=== PATIENT | male | born 1955 | race African-American/Black ===

== ENCOUNTER 2018-08-14 16:50 | Inpatient (IN) ==
--- NOTE | 2018-08-14 17:24 | XR ---
EXAM DATE: 08/14/2018 5:21 PM EST AGE/SEX: 62 years / Male INDICATIONS: Chest pain CLINICAL DATA: This is the patient's initial encounter. Patient reports that signs and symptoms have been present for 1 day and indicates a pain score of 0/10. MEDICAL/SURGICAL HISTORY: None. None. COMPARISON: No prior exams available for comparison. FINDINGS: There is dense airspace consolidation right lower lobe. Heart and mediastinum are unremarkable for technique. CONCLUSION: Right lower lobe pneumonia. Electronically signed by: Ivan Stockton MD Board Certified Radiologist 08/14/2018 5:23 PM EST
[2018-08-14] MEDS ORDERED: Azithromycin Inj 500 MG in Sodium Chlor 0.9% Inj 250 ML IV.SIG ONE (17:39)
[2018-08-14 17:42] LABS: Baso # (Auto) 0.1 th/mm3 (0.0-0.2); Baso % (Auto) 0.6 % (0.0-2.0); Eos # (Auto) 0.1 th/mm3 (0.0-0.4); Eos % (Auto) 0.5 % (0.0-4.0); Hematocrit 27.5 % (39.0-51.0); Hemoglobin 8.7 gm/dL (13.0-17.0); Lymph # (Auto) 1.7 th/mm3 (1.0-4.8); Lymph % (Auto) 10.9 % (9.0-44.0); Mean Corpuscular HGB Conc 31.7 % (32.0-36.0); Mean Corpuscular Hemoglobin 21.7 pg (27.0-34.0); Mean Corpuscular Volume 68.5 fL (80.0-100.0); Mean Platelet Volume 7.1 fL (7.0-11.0); Mono # (Auto) 1.2 th/mm3 (0.0-0.9); Mono % (Auto) 7.8 % (0.0-8.0); Neut # (Auto) 12.4 th/mm3 (1.8-7.7); Neut % (Auto) 80.2 % (16.0-70.0); Platelet Count 762 th/mm3 (150-450); Red Blood Count 4.01 mil/mm3 (4.50-5.90); Red Cell Distribution Width 17.4 % (11.6-17.2); White Blood Count 15.4 th/mm3 (4.0-11.0)
[2018-08-14] MEDS ORDERED: Sod Chloride 0.9% Inj 1,000 ML IV.SIG SCH (18:00)
[2018-08-14 18:01] LABS: Alanine Aminotransferase 64 U/L (12-78); Albumin 2.1 g/dL (3.4-5.0); Anion Gap 6 meq/L (5-15); Aspartate Aminotransferase 37 U/L (15-37); Blood Urea Nitrogen 7 mg/dL (7-18); Calcium 8.7 mg/dL (8.5-10.1); Carbon Dioxide 30.1 meq/L (21.0-32.0); Chloride 101 meq/L (98-107); Glomerular Filtration Rate Greater Than 89 mL/min (>89); Glucose,Random 97 mg/dL (74-106); Potassium 3.9 meq/L (3.5-5.1); Sodium 137 meq/L (136-145)
[2018-08-14 18:05] LABS: Alkaline Phosphatase 79 U/L (45-117); Total Protein 8.7 g/dL (6.4-8.2)
--- NOTE | 2018-08-14 18:20 | ED ---
HPI General Chief Complaint: Shortness of Breath/Dyspnea Stated Complaint: Medical/SOB Time Seen by Provider: 08/14/18 17:04 Source: patient and family Mode of arrival: ambulatory Limitations: no limitations History of Present Illness 62-year-old male who presents to the ED for evaluation of shortness of breath. Per patient is been having cough and congestion for about 3 weeks now and apparently had an x-ray at a different facility today that show possible pneumonia. From what it sounds like he was in urgent care had to do an outpatient x-ray. Patient comes here with a report of the x-ray that did show right-sided lower lobe pneumonia. He was given a given prescriptions but apparently he communicated with 1 of his family members who works in the healthcare field recommended that the patient come to the ER to be reevaluated. Patient states that he has lost his appetite. He does have a history of smoking and smokes daily but has quit about 3 weeks ago since the symptoms started. Has been taking [id number]-kzihjit remedies with some relief. Per patient overall he does not feel well. He denies any shortness of breath with exertion but states that he has cough and congestion to make him short of breath. He overall just feels weak. He feels like nothing really makes it better. He denies any chest pain. No recent travel. No sick contacts. Did not get the flu shot. Related Data Home Medications Medication Instructions Recorded Confirmed No Known Home Medications 08/14/18 08/14/18 Allergies Allergy/AdvReac Type Severity Reaction Status Date / Time No Known Allergies Uncoded 09/27/10 13:16 Review of Systems ROS: all other systems reviewed are negative [facility] Medical History Medical History Hypertension (Acute) Surgical History Surgical History No history of previous surgery (Acute) Social History Social History Substance History: No History of Abuse Smoking Status: Former smoker Tobacco Type: Cigarettes How Often Do You Have a Drink Containing Alcohol: 2 to 4 times a month Recent Travel in [place] within the Last 8 Weeks: No Recent Out of Country Travel within the Last 8 Weeks: No Immunization History Tetanus Immunization: Unsure Exam Narrative Exam Narrative: GENERAL: Well appearing. SKIN: Focused skin assessment warm/dry. HEAD: Atraumatic. Normocephalic. EYES: Pupils equal and round. No scleral icterus. No injection or drainage. ENT: No nasal bleeding or discharge. Mucous membranes pink and moist. Tongue is midline. No Uvula deviation. TMs are clear with no sign of infection or perforation. NECK: Trachea midline. No JVD. CARDIOVASCULAR: Regular rate and rhythm. No murmur appreciated. RESPIRATORY: No accessory muscle use. Clear to auscultation. Breath sounds equal bilaterally. GASTROINTESTINAL: Abdomen soft, non-tender, nondistended. Hepatic and splenic margins not palpable. MUSCULOSKELETAL: No obvious deformities. No clubbing. No cyanosis. No edema. Full range of motion of the upper and lower extremities bilaterally. 2+ pulses bilaterally. NEUROLOGICAL: Awake and alert. No obvious cranial nerve deficits. Motor grossly within normal limits. Normal speech. PSYCHIATRIC: Appropriate mood and affect; insight and judgment normal. Course Initial Documented Vital Signs Temperature 99.8 F H 08/14/18 16:53 Pulse Rate 110 H 08/14/18 16:53 Respiratory Rate 20 08/14/18 16:53 Blood Pressure 113/66 08/14/18 16:53 Pulse Oximetry 96 08/14/18 16:53 Last Documented Vital Signs Temperature 99.8 F H 08/14/18 16:53 Pulse Rate 105 H 08/14/18 16:56 Respiratory Rate 20 08/14/18 16:56 Blood Pressure 113/66 08/14/18 16:53 Pulse Oximetry 100 08/14/18 16:56 Medical Decision Making [facility] Narrative Medical decision making narrative: 62-year-old male who presents to the ED for evaluation of possible pneumonia. Patient was properly examined and was found to have signs and symptoms consistent with appears to be infectious. Labs and imaging were ordered. Patient is clinically septic having a fever as well as tachycardia. Labs and imaging did show were consistent with right-sided lower lobe pneumonia with leukocytosis. My attending evaluated the patient herself and recommends admission for further evaluation and treatment. Patient will start ceftriaxone and azithromycin IV as well as given fluids. Patient understands reasons to be admitted. Case discussed with Dr. Crockett who agrees admission to his service. Medical Screen Exam Complete: Yes Emergency Medical Condition: Yes Differential Diagnosis Differential Diagnosis: Pneumonia versus sepsis versus shortness of breath versus [facility] Medical Records Medical records reviewed: Yes I reviewed the patient's medical records. Lab Data Lab results reviewed: Yes I reviewed the patient's lab results. Result diagrams: 08/14/18 17:20 08/14/18 17:20 Lab Results 08/14/18 08/14/18 08/14/18 Range/Units 17:20 17:20 17:20 WBC 15.4 H (4.0-11.0) th/mm3 RBC 4.01 L (4.50-5.90) mil/mm3 Hgb 8.7 L (13.0-17.0) gm/dL Hct 27.5 L (39.0-51.0) % MCV 68.5 L (80.0-100.0) fL MCH 21.7 L (27.0-34.0) pg MCHC 31.7 L (32.0-36.0) % RDW 17.4 H (11.6-17.2) % Plt Count 762 H (150-450) th/mm3 MPV 7.1 (7.0-11.0) fL Neut % (Auto) 80.2 H (16.0-70.0) % Lymph % (Auto) 10.9 (9.0-44.0) % [place] % (Auto) 7.8 (0.0-8.0) % Eos % (Auto) 0.5 (0.0-4.0) % Baso % (Auto) 0.6 (0.0-2.0) % Neut # (Auto) 12.4 H (1.8-7.7) th/mm3 Lymph # (Auto) 1.7 (1.0-4.8) th/mm3 [place] # (Auto) 1.2 H (0.0-0.9) th/mm3 Eos # (Auto) 0.1 (0.0-0.4) th/mm3 Baso # (Auto) 0.1 (0.0-0.2) th/mm3 WBC Differential . Differential Comment Auto diff final Sodium 137 (136-145) meq/L Potassium 3.9 (3.5-5.1) meq/L Chloride 101 (98-107) meq/L Carbon Dioxide 30.1 (21.0-32.0) meq/L Anion Gap 6 (5-15) meq/L BUN 7 (7-18) mg/dL Creatinine 0.84 (0.60-1.30) mg/dL Estimated GFR Greater than 89 (>89) mL/min Random Glucose 97 (74-106) mg/dL Lactic Acid 0.7 (0.4-2.0) mmol/L Calcium 8.7 (8.5-10.1) mg/dL Total Bilirubin 0.2 (0.2-1.0) mg/dL AST 37 (15-37) U/L ALT 64 (12-78) U/L Alkaline Phosphatase 79 (45-117) U/L Troponin I Less than 0.02 L (0.02-0.05) ng/mL Total Protein 8.7 H (6.4-8.2) g/dL Albumin 2.1 L (3.4-5.0) g/dL Imaging Data Attestation: I personally reviewed and interpreted this imaging study as follows : Radiologist's impression: Chest X-Ray 08/14/18 17:10 CONCLUSION: Right lower lobe pneumonia. ECG Data Attestation: I personally reviewed and interpreted this ECG as follows: Interpretation: EKG shows sinus tachycardia but no sign of acute ischemia and arrhythmia otherwise read by me and attending. Ventricular rate of 110 bpm, ND interval of [address] elevations noted. Discharge Plan Discharge Order Discharge Orders: ED Use Only Admit Order (Routine); Ordered 08/14/18 Ordered By: Darrius Presley Physicians Team ED Provider: Dori De La Torre ED Midlevel Provider: Darrius Presley Primary Care Provider: Primary Care AnnikaiTiesha Rxs /Orders / Referrals /Forms Prescriptions: No Action No Known Home Medications RF: 0 Discharge Interventions Interventions: Vital Signs Last Done: 08/14/18 16:56 Status ED Status: Admitted Observation Patient
[2018-08-14] MEDS ORDERED: Bisacodyl 10 MG Supp RECTAL PRN (18:56)
--- NOTE | 2018-08-14 18:59 | P.HPIM ---
History of Present Illness Primary Care Physician: No Primary Care Physician History of Present Illness: This is a 62-year-old male with a PMH of HTN and Tobacco Abuse who presented to the ER with complaints of SOB in addition to outpatient X-ray showing RLL pneumonia. Pt states symptoms started approx 3wks ago, has not been on antibiotics. Reports SOB w/ exertion, non-productive cough. No fever or chills. Went to Urgent Care today and had X-ray showing PNA , was given antibiotics, however did not start them yet, came to ER instead. On arrival, BP 113/66, HR 110, O2 sat 96% on RA, Temp 99.8. WBC 15.4. Hemoglobin 8.7, no previous labs for comparison. Chemistry unremarkable. CXR with right lower lobe pneumonia. S/p Rocephin/Zithro in ER. Diagnosis (1) Sepsis: (2) PNA (pneumonia): (3) Tobacco abuse: (4) Anemia: Review of Systems PAST FAMILY HISTORY: Reviewed. No h/o DM or CAD Review of Systems: all other systems reviewed are negative [facility] Medical History Medical History Hypertension (Acute) Surgical History Surgical History No history of previous surgery (Acute) Social History Social History Substance History: No History of Abuse Smoking Status: Former smoker Tobacco Type: Cigarettes How Often Do You Have a Drink Containing Alcohol: 2 to 4 times a month Recent Travel in [facility] within the Last 8 Weeks: No Recent Out of Country Travel within the Last 8 Weeks: No Immunization History Tetanus Immunization: Unsure Medications and Allergies Allergies Allergy/AdvReac Type Severity Reaction Status Date / Time No Known Allergies Uncoded 09/27/10 13:16 Home Medications Medication Instructions Recorded Confirmed Type No Known Home Medications 08/14/18 08/14/18 History Physical Exam Vital signs: Last Vital Signs Temp 99.8 F H 08/14/18 16:53 Pulse 98 H 08/14/18 18:57 Resp 20 08/14/18 18:57 BP 130/82 08/14/18 18:57 Pulse Ox 98 08/14/18 18:57 Intake & Output 08/12/18 08/13/18 08/14/18 08/15/18 06:59 06:59 06:59 06:59 Intake Total 1100 / 1100 Balance 1100 / 1100 Weight 97.522 kg Narrative: PE: GENERAL: Pleasant middle-aged black male in no acute distress. Multiple family members at bedside. SKIN: Focused skin assessment warm and dry. HEENT: PERRLA, EOMI. No scleral icterus or conjunctival pallor. No lid lag or facial droop. CARDIOVASCULAR: Regular rate and rhythm. No obvious murmurs to auscultation. No chest tenderness to palpation. RESPIRATORY: No obvious rhonchi or wheezing. Clear to auscultation. Breath sounds equal bilaterally. GASTROINTESTINAL: Abdomen soft, non-tender, nondistended. BS normal. MUSCULOSKELETAL: Extremities without clubbing, cyanosis, or edema. No obvious deformities. NEUROLOGICAL: Awake, alert and oriented x4. No focal neurologic deficits. Moving both upper and lower extremities spontaneously. PSYCHIATRIC: Appropriate mood and affect. Insight and judgment normal. Results Labs CBC & Chem 7: 08/14/18 17:20 08/14/18 17:20 Imaging Impressions Chest X-Ray 08/14/18 17:10 CONCLUSION: Right lower lobe pneumonia. Caprini VTE Risk Assessment Caprini VTE Risk Assessment: No/Low Risk (score <= 1) Caprini Risk Assessment Model: Point Value = 1 Point Value = 2 Point Value = 3 Point Value = 5 Age 41-60 Minor surgery BMI > 25 kg/m2 Swollen legs Varicose veins or History of unexplained or recurrent spontaneous Oral contraceptives or hormone replacement Sepsis (< 1 month) Serious lung disease, including pneumonia (< 1 month) Abnormal pulmonary function Acute myocardial infarction Congestive heart failure (< 1 month) History of inflammatory bowel disease Medical patient at bed rest Age 61-74 Arthroscopic surgery Major open surgery (> 45 min) Laparoscopic surgery (> 45 min) Malignancy Confined to bed (> 72 hours) Immobilizing plaster cast Central venous access Age >= 75 History of VTE Family history of VTE Factor V Leiden Prothrombin [id number] Lupus anticoagulant Anticardiolipin antibodies Elevated serum homocysteine Heparin-induced thrombocytopenia Other congenital or acquired thrombophilia Stroke (< 1 month) Elective arthroplasty Hip, pelvis, or leg fracture Acute spinal cord injury (< 1 month) Prophylaxis Regimen: Total Risk Factor Score Risk Level Prophylaxis Regimen 0-1 Low Early ambulation 2 Moderate Order ONE of the following: *Sequential Compression Device (SCD) *Heparin 5000 units SQ BID 3-4 Higher Order ONE of the following medications: *Heparin 5000 units SQ TID *Enoxaparin/Lovenox 40 mg SQ daily (WT < 150 kg, CrCl > 30 mL/min) *Enoxaparin/Lovenox 30 mg SQ daily (WT < 150 kg, CrCl > 10-29 mL/min) *Enoxaparin/Lovenox 30 mg SQ BID (WT < 150 kg, CrCl > 30 mL/min) AND/OR *Sequential Compression Device (SCD) 5 or more Highest Order ONE of the following medications: *Heparin 5000 units SQ TID (Preferred with Epidurals) *Enoxaparin/Lovenox 40 mg SQ daily (WT < 150 kg, CrCl > 30 mL/min) *Enoxaparin/Lovenox 30 mg SQ daily (WT < 150 kg, CrCl > 10-29 mL/min) *Enoxaparin/Lovenox 30 mg SQ BID (WT < 150 kg, CrCl > 30 mL/min) AND *Sequential Compression Device (SCD) Assessment and Plan (1) Sepsis: Code(s): A41.9 - Sepsis, unspecified organism Status: Acute (2) PNA (pneumonia): Code(s): J18.9 - Pneumonia, unspecified organism Status: Acute (3) Tobacco abuse: Code(s): Z72.0 - Tobacco use Status: Acute (4) Anemia: Code(s): D64.9 - Anemia, unspecified Status: Acute Plan A/P: 1. Sepsis: Temp 99.8, HR 110, WBC 15, Source-PNA, s/p Blood Cultures, Rocephin /Zithro in ER, follow up cultures, continue IV Abx, IVF for hydration. 2. PNA: outpatient X-ray w/ RLL pneumonia, confirmed on our imaging, continue IV Abx as above, DuoNeb prn, monitor O2 3. Anemia: Hgb 8.5, no previous labs for comparison, will repeat labs in am, transfuse as needed. 4. Tobacco Abuse: Pt counselled, stopped smoking 3wks ago at onset of SOB, NicoDerm patch if needed. 5. DVT Prophylaxis: SCD/Teds 6. Social work for d/c planning as needed. 7. Case discussed w/ ER physician at length, labs/records/imaging reviewed by me.
[2018-08-14] MEDS: Sod Chloride 0.9% Inj 1,000 ML IV.CONT SCH (19:57)
[2018-08-14] MEDS: Senna/Docusate Sodium 8.6/50 MG Tablet PO SCH (20:07)
[2018-08-15] MEDS: Sod Chloride 0.9% Inj 1,000 ML IV.CONT SCH (06:23)
[2018-08-15 08:17] LABS: Baso # (Auto) 0.2 th/mm3 (0.0-0.2); Baso % (Auto) 1.6 % (0.0-2.0); Eos # (Auto) 0.1 th/mm3 (0.0-0.4); Eos % (Auto) 0.4 % (0.0-4.0); Hematocrit 25.6 % (39.0-51.0); Hemoglobin 7.8 gm/dL (13.0-17.0); Lymph # (Auto) 1.2 th/mm3 (1.0-4.8); Lymph % (Auto) 8.7 % (9.0-44.0); Mean Corpuscular Hemoglobin 21.1 pg (27.0-34.0); Mean Corpuscular Volume 69.3 fL (80.0-100.0); Mean Platelet Volume 7.4 fL (7.0-11.0); Mono # (Auto) 1.1 th/mm3 (0.0-0.9); Mono % (Auto) 7.9 % (0.0-8.0); Neut # (Auto) 11.2 th/mm3 (1.8-7.7); Neut % (Auto) 81.4 % (16.0-70.0); Platelet Count 698 th/mm3 (150-450); Red Cell Distribution Width 17.5 % (11.6-17.2); White Blood Count 13.8 th/mm3 (4.0-11.0)
[2018-08-15 08:21] LABS: Mean Corpuscular HGB Conc 30.4 % (32.0-36.0)
[2018-08-15 09:00] LABS: Albumin 1.8 g/dL (3.4-5.0); Anion Gap 9 meq/L (5-15); Aspartate Aminotransferase 46 U/L (15-37); Blood Urea Nitrogen 6 mg/dL (7-18); Calcium 8.4 mg/dL (8.5-10.1); Chloride 105 meq/L (98-107); Glomerular Filtration Rate Greater Than 89 mL/min (>89); Glucose,Random 94 mg/dL (74-106); Potassium 3.4 meq/L (3.5-5.1); Sodium 139 meq/L (136-145)
[2018-08-15 09:02] LABS: Alanine Aminotransferase 56 U/L (12-78)
[2018-08-15 09:05] LABS: Alkaline Phosphatase 66 U/L (45-117); Total Protein 7.5 g/dL (6.4-8.2)
--- NOTE | 2018-08-15 12:08 | P.PN ---
Subjective Interval history: Follow-up sepsis/pneumonia August 15, 2018-patient seen and examined, still spiking fevers and complains of shortness of breath. Physical Exam Vital signs: Vital Signs 08/14/18 16:53 08/14/18 16:56 08/14/18 18:57 Temperature 99.8 F H Pulse Rate 110 H 105 H 98 H Respiratory Rate 20 20 20 Blood Pressure 113/66 130/82 Pulse Oximetry 96 100 98 08/15/18 00:21 08/15/18 02:31 08/15/18 04:00 Temperature 100.1 F H 99.3 F Pulse Rate 102 H 95 H 104 H Respiratory Rate 12 18 14 Blood Pressure 115/68 122/67 Pulse Oximetry 92 L 94 L 08/15/18 07:48 Temperature 100.2 F H Pulse Rate 100 H Respiratory Rate 18 Blood Pressure 127/69 Pulse Oximetry 95 Intake & Output 08/14/18 08/15/18 08/15/18 18:59 06:59 18:59 Intake Total 1100 / 1100 1250 / 1250 Balance 1100 / 1100 1250 / 1250 Weight 97.522 kg 97.522 kg Intake: IV 1100 / 1100 1250 / 1250 NS Inj 1,000 ML @ 100 mls/hr IV 1000 / 1000 .CONT .Q10H ANDREA Rx#:[id number] Azithromycin Inj 500 MG In NS 250 / 250 Inj 250 ML @ 250 mls/hr IV.SIG ONCE ONE Rx#:[id number] NS Inj 1,000 ML @ 1000 mls/hr 1000 / 1000 IV.SIG BOLUS ANDREA Rx#:[id number] Rocephin Inj 1,000 MG In NS Inj 100 / 100 100 ML @ 200 mls/hr IV.SIG ONCE ONE Rx#:[id number] Other: Weight On Admission 97.522 kg Narrative: GENERAL: NAD SKIN: Warm and dry. HEAD: Atraumatic. Normocephalic. EYES: Pupils equal and round. No scleral icterus. No injection or drainage. ENT: No nasal bleeding or discharge. Mucous membranes pink and moist. NECK: Trachea midline. No JVD. CARDIOVASCULAR: Regular rate and rhythm. RESPIRATORY: No accessory muscle use. Clear to auscultation. Breath sounds decrease R>L. GASTROINTESTINAL: Abdomen soft, non-tender, nondistended. Hepatic and splenic margins not palpable. MUSCULOSKELETAL: Extremities without clubbing, cyanosis, or edema. No obvious deformities. NEUROLOGICAL: Awake and alert. No obvious cranial nerve deficits. Motor grossly within normal limits. Five out of 5 muscle strength in the arms and legs. Normal speech. PSYCHIATRIC: Appropriate mood and affect; insight and judgment normal. Results - Labs CBC & Chem 7: 08/15/18 06:20 08/15/18 06:20 Laboratory Results - last 24 hr 08/14/18 08/14/18 08/14/18 17:20 17:20 17:20 WBC 15.4 H RBC 4.01 L Hgb 8.7 L Hct 27.5 L MCV 68.5 L MCH 21.7 L MCHC 31.7 L RDW 17.4 H Plt Count 762 H MPV 7.1 Neut % (Auto) 80.2 H Lymph % (Auto) 10.9 [place] % (Auto) 7.8 Eos % (Auto) 0.5 Baso % (Auto) 0.6 Neut # (Auto) 12.4 H Lymph # (Auto) 1.7 [place] # (Auto) 1.2 H Eos # (Auto) 0.1 Baso # (Auto) 0.1 WBC Differential . Differential Comment Auto diff final Sodium 137 Potassium 3.9 Chloride 101 Carbon Dioxide 30.1 Anion Gap 6 BUN 7 Creatinine 0.84 Estimated GFR Greater than 89 Random Glucose 97 Lactic Acid 0.7 Calcium 8.7 Total Bilirubin 0.2 AST 37 ALT 64 Alkaline Phosphatase 79 Troponin I Less than 0.02 L Total Protein 8.7 H Albumin 2.1 L 08/15/18 08/15/18 06:20 06:20 WBC 13.8 H RBC 3.70 L Hgb 7.8 L Hct 25.6 L MCV 69.3 L MCH 21.1 L MCHC 30.4 L RDW 17.5 H Plt Count 698 H MPV 7.4 Neut % (Auto) 81.4 H Lymph % (Auto) 8.7 L [place] % (Auto) 7.9 Eos % (Auto) 0.4 Baso % (Auto) 1.6 Neut # (Auto) 11.2 H Lymph # (Auto) 1.2 [place] # (Auto) 1.1 H Eos # (Auto) 0.1 Baso # (Auto) 0.2 WBC Differential . Differential Comment Auto diff final Sodium 139 Potassium 3.4 L Chloride 105 Carbon Dioxide 25.0 Anion Gap 9 BUN 6 L Creatinine 0.67 Estimated GFR Greater than 89 Random Glucose 94 Lactic Acid Calcium 8.4 L Total Bilirubin 0.3 AST 46 H ALT 56 Alkaline Phosphatase 66 Troponin I Total Protein 7.5 D Albumin 1.8 L Microbiology 08/14/18 17:26 Blood - Peripheral Aerobic Blood Culture - Preliminary No growth in 1 day 08/14/18 17:26 Blood - Peripheral Anaerobic Blood Culture - Preliminary No growth in 1 day 08/14/18 17:20 Blood - Peripheral Aerobic Blood Culture - Preliminary No growth in 1 day 08/14/18 17:20 Blood - Peripheral Anaerobic Blood Culture - Preliminary No growth in 1 day 08/14/18 17:26 Nasal Wash Influenza Types A,B Antigen - Final Negative for FLU A and B antigen Infection due to influenza A or B cannot be ruled out since the antigen present in the sample may be below the detection limit of the test. - Imaging Impressions Chest X-Ray 08/14/18 17:10 CONCLUSION: Right lower lobe pneumonia. Assessment and Plan - Assessment (1) Sepsis Code(s): A41.9 - Sepsis, unspecified organism Status: Acute (2) PNA (pneumonia) Code(s): J18.9 - Pneumonia, unspecified organism Status: Acute (3) Tobacco abuse Code(s): Z72.0 - Tobacco use Status: Acute (4) Anemia Code(s): D64.9 - Anemia, unspecified Status: Acute - Plan 62-year-old man with 1. Sepsis Source-PNA, s/p Blood Cultures, Currently on Rocephin/Zithro in ER, follow up cultures 2. Community-acquired bacteria PNA: X-ray w/ RLL pneumonia continue IV Abx as above, DuoNeb prn, monitor O2 3. Normochromic normocytic anemia Check Hemoccult, iron study Most recent hemoglobin less than 7 4. Tobacco Abuse: Pt counselled, stopped smoking 3wks ago at onset of SOB, NicoDerm patch if needed. 5. DVT Prophylaxis: SCD/Teds Transfer to [facility] CBC and CMP in a.m.
[2018-08-15] MEDS: Azithromycin Inj 500 MG in Sodium Chlor 0.9% Inj 250 ML IV.SIG SCH (18:26)
[2018-08-15] MEDS: Senna/Docusate Sodium 8.6/50 MG Tablet PO SCH (20:40)
[2018-08-15] MEDS: Acetaminophen 325 MG Tablet PO PRN (21:00)
--- NOTE | 2018-08-15 21:17 | ECG ---
Date Performed: 08/14/2018 Time Performed: 17:09:57 PTAGE: 62 years EKG: SINUS TACHYCARDIA NONSPECIFIC T-WAVE ABNORMALITY ABNORMAL RHYTHM ECG INTERPRETATION BASED O N A DEFAULT AGE OF 41 YEARS NO PREVIOUS TRACING DOCTOR: Rodolfo Kenney Interpretating Date/Time 08/15/2018 21:15:02
[2018-08-16 04:55] LABS: Baso # (Auto) 0.1 th/mm3 (0.0-0.2); Baso % (Auto) 0.9 % (0.0-2.0); Eos # (Auto) 0.1 th/mm3 (0.0-0.4); Eos % (Auto) 0.8 % (0.0-4.0); Hematocrit 25.3 % (39.0-51.0); Hemoglobin 7.9 gm/dL (13.0-17.0); Lymph # (Auto) 1.3 th/mm3 (1.0-4.8); Lymph % (Auto) 9.8 % (9.0-44.0); Mean Corpuscular HGB Conc 31.3 % (32.0-36.0); Mean Corpuscular Hemoglobin 21.1 pg (27.0-34.0); Mean Corpuscular Volume 67.4 fL (80.0-100.0); Mean Platelet Volume 6.8 fL (7.0-11.0); Mono # (Auto) 1.3 th/mm3 (0.0-0.9); Mono % (Auto) 9.7 % (0.0-8.0); Neut # (Auto) 10.3 th/mm3 (1.8-7.7); Neut % (Auto) 78.8 % (16.0-70.0); Platelet Count 699 th/mm3 (150-450); Red Blood Count 3.76 mil/mm3 (4.50-5.90); Red Cell Distribution Width 17.4 % (11.6-17.2)
[2018-08-16 05:16] LABS: Albumin 1.6 g/dL (3.4-5.0); Anion Gap 5 meq/L (5-15); Aspartate Aminotransferase 62 U/L (15-37); Blood Urea Nitrogen 5 mg/dL (7-18); Calcium 8.4 mg/dL (8.5-10.1); Carbon Dioxide 28.5 meq/L (21.0-32.0); Chloride 106 meq/L (98-107); Glomerular Filtration Rate Greater Than 89 mL/min (>89); Glucose,Random 113 mg/dL (74-106); Potassium 3.8 meq/L (3.5-5.1); Sodium 139 meq/L (136-145)
[2018-08-16 05:17] LABS: Alanine Aminotransferase 70 U/L (12-78)
[2018-08-16 05:19] LABS: Alkaline Phosphatase 62 U/L (45-117); Total Protein 7.3 g/dL (6.4-8.2)
--- NOTE | 2018-08-16 11:26 | P.PN ---
Subjective Interval history: Follow-up sepsis/pneumonia August 15, 2018-patient seen and examined, still spiking fevers and complains of shortness of breath. August 16, 2018-patient seen and examined, currently afebrile times 24 hours. Reports improvement of shortness of breath and denies any chest pain. Physical Exam Vital signs: Vital Signs 08/15/18 12:15 08/15/18 16:23 08/15/18 17:28 Temperature 99.3 F 99.9 F H Pulse Rate 98 H 103 H 105 H Respiratory Rate 16 16 18 Blood Pressure 121/66 142/75 H Pulse Oximetry 97 97 08/15/18 19:51 08/16/18 00:00 08/16/18 04:00 Temperature 101.6 F H 98.7 F 98.5 F Pulse Rate 107 H 86 90 Respiratory Rate 22 20 18 Blood Pressure 125/77 120/62 123/67 Pulse Oximetry 96 98 100 08/16/18 08:10 Temperature 99.3 F Pulse Rate 95 H Respiratory Rate 14 Blood Pressure 125/62 Pulse Oximetry 100 Intake & Output 08/15/18 08/16/18 08/16/18 18:59 06:59 18:59 Intake Total 450 / 450 1090 / 1090 Balance 450 / 450 1090 / 1090 Weight 102.7 kg Intake: IV 850 / 850 NS Inj 1,000 ML @ 100 mls/hr IV 500 / 500 .CONT .Q10H ANDREA Rx#:[id number] Azithromycin Inj 500 MG In NS 250 / 250 Inj 250 ML @ 250 mls/hr IV.SIG Q24H ANDREA Rx#:[id number] Rocephin Inj 1,000 MG In NS Inj 100 / 100 100 ML @ 200 mls/hr IV.SIG Q24H ANDREA Rx#:[id number] Oral 450 / 450 240 / 240 Other: # Voids 4 1 Date of Last Bowel Movement 08/14/18 08/15/18 Narrative: GENERAL: NAD SKIN: Warm and dry. HEAD: Atraumatic. Normocephalic. EYES: Pupils equal and round. No scleral icterus. No injection or drainage. ENT: No nasal bleeding or discharge. Mucous membranes pink and moist. NECK: Trachea midline. No JVD. CARDIOVASCULAR: Regular rate and rhythm. RESPIRATORY: No accessory muscle use. Clear to auscultation. Breath sounds equal bilaterally GASTROINTESTINAL: Abdomen soft, non-tender, nondistended. Hepatic and splenic margins not palpable. MUSCULOSKELETAL: Extremities without clubbing, cyanosis, or edema. No obvious deformities. NEUROLOGICAL: Awake and alert. No obvious cranial nerve deficits. Motor grossly within normal limits. Five out of 5 muscle strength in the arms and legs. Normal speech. PSYCHIATRIC: Appropriate mood and affect; insight and judgment normal. Results - Labs CBC & Chem 7: 08/16/18 04:39 08/16/18 04:39 Laboratory Results - last 24 hr 08/15/18 08/16/18 08/16/18 06:20 04:39 04:39 WBC 13.0 H RBC 3.76 L Hgb 7.9 L Hct 25.3 L MCV 67.4 L MCH 21.1 L MCHC 31.3 L RDW 17.4 H Plt Count 699 H MPV 6.8 L Neut % (Auto) 78.8 H Lymph % (Auto) 9.8 [place] % (Auto) 9.7 H Eos % (Auto) 0.8 Baso % (Auto) 0.9 Neut # (Auto) 10.3 H Lymph # (Auto) 1.3 [place] # (Auto) 1.3 H Eos # (Auto) 0.1 Baso # (Auto) 0.1 WBC Differential . Differential Comment Auto diff final Sodium 139 Potassium 3.8 Chloride 106 Carbon Dioxide 28.5 Anion Gap 5 BUN 5 L Creatinine 0.66 Estimated GFR Greater than 89 Random Glucose 113 H Calcium 8.4 L Iron 12 L TIBC 199 L % Saturation 6.0 L Ferritin 94 Total Bilirubin 0.2 AST 62 H ALT 70 Alkaline Phosphatase 62 Total Protein 7.3 Albumin 1.6 L Microbiology 08/14/18 17:26 Blood - Peripheral Aerobic Blood Culture - Preliminary No growth in 2 days 08/14/18 17:26 Blood - Peripheral Anaerobic Blood Culture - Preliminary No growth in 2 days 08/14/18 17:20 Blood - Peripheral Aerobic Blood Culture - Preliminary No growth in 2 days 08/14/18 17:20 Blood - Peripheral Anaerobic Blood Culture - Preliminary No growth in 2 days 08/15/18 00:25 Sputum - Expectorated Sputum Gram Stain - Final Assessment and Plan - Assessment (1) Sepsis Code(s): A41.9 - Sepsis, unspecified organism Status: Acute (2) PNA (pneumonia) Code(s): J18.9 - Pneumonia, unspecified organism Status: Acute (3) Tobacco abuse Code(s): Z72.0 - Tobacco use Status: Acute (4) Anemia Code(s): D64.9 - Anemia, unspecified Status: Acute - Plan 62-year-old man with 1. Sepsis Source-PNA, s/p Blood Cultures, Currently on Rocephin/Zithro in ER, follow up cultures 2. Community-acquired bacteria PNA: X-ray w/ RLL pneumonia continue IV Abx as above, DuoNeb prn, monitor O2 3. Normochromic normocytic anemia Hemoccult pending, iron study noted without any evidence of BISHOP Most recent hemoglobin less than 7 4. Tobacco Abuse: Pt counselled, stopped smoking 3wks ago at onset of SOB, NicoDerm patch if needed. 5. DVT Prophylaxis: SCD/Teds CBC and CMP in a.m.
[2018-08-16] MEDS: Azithromycin Inj 500 MG in Sodium Chlor 0.9% Inj 250 ML IV.SIG SCH (18:04)
[2018-08-16] MEDS: Acetaminophen 325 MG Tablet PO PRN (22:58)
[2018-08-17 07:09] LABS: Baso # (Auto) 0.1 th/mm3 (0.0-0.2); Baso % (Auto) 1.1 % (0.0-2.0); Eos # (Auto) 0.1 th/mm3 (0.0-0.4); Eos % (Auto) 1.1 % (0.0-4.0); Hematocrit 24.6 % (39.0-51.0); Hemoglobin 7.6 gm/dL (13.0-17.0); Lymph # (Auto) 1.4 th/mm3 (1.0-4.8); Lymph % (Auto) 11.4 % (9.0-44.0); Mean Corpuscular Hemoglobin 21.1 pg (27.0-34.0); Mean Corpuscular Volume 68.2 fL (80.0-100.0); Mean Platelet Volume 7.3 fL (7.0-11.0); Mono # (Auto) 1.1 th/mm3 (0.0-0.9); Mono % (Auto) 8.9 % (0.0-8.0); Neut # (Auto) 9.4 th/mm3 (1.8-7.7); Neut % (Auto) 77.5 % (16.0-70.0); Platelet Count 654 th/mm3 (150-450); Red Blood Count 3.61 mil/mm3 (4.50-5.90); Red Cell Distribution Width 17.1 % (11.6-17.2); White Blood Count 12.1 th/mm3 (4.0-11.0)
[2018-08-17 07:36] LABS: Albumin 1.6 g/dL (3.4-5.0); Anion Gap 8 meq/L (5-15); Aspartate Aminotransferase 63 U/L (15-37); Blood Urea Nitrogen 5 mg/dL (7-18); Calcium 8.7 mg/dL (8.5-10.1); Carbon Dioxide 26.2 meq/L (21.0-32.0); Chloride 106 meq/L (98-107); Glomerular Filtration Rate Greater Than 89 mL/min (>89); Glucose,Random 95 mg/dL (74-106); Potassium 3.7 meq/L (3.5-5.1); Sodium 140 meq/L (136-145)
[2018-08-17 07:37] LABS: Alanine Aminotransferase 83 U/L (12-78)
[2018-08-17 07:40] LABS: Alkaline Phosphatase 58 U/L (45-117); Total Protein 7.1 g/dL (6.4-8.2)
[2018-08-17] MEDS ORDERED: Sodium Chlor 0.9% Inj 250 ML IV.SIG SCH (12:00)
--- NOTE | 2018-08-17 14:46 | P.PN ---
Subjective Interval history: Follow-up sepsis/pneumonia August 15, 2018-patient seen and examined, still spiking fevers and complains of shortness of breath. August 16, 2018-patient seen and examined, currently afebrile times 24 hours. Reports improvement of shortness of breath and denies any chest pain. August 17, 2018-patient seen and examined, T-max 1 1.4 at 11 PM however currently afebrile. No chest pain or shortness of breath. Hemoglobin 7.6. Patient denies any GI bleed. Physical Exam Vital signs: Vital Signs 08/16/18 17:23 08/16/18 20:00 08/16/18 23:02 Temperature 99.2 F 99.4 F 101.4 F H Pulse Rate 99 H 102 H 101 H Respiratory Rate 14 18 18 Blood Pressure 125/69 120/75 120/64 Pulse Oximetry 100 94 L 94 L 08/17/18 05:00 08/17/18 10:45 Temperature 98.4 F 99.1 F Pulse Rate 95 H 91 H Respiratory Rate 18 16 Blood Pressure 132/77 111/73 Pulse Oximetry 96 97 Intake & Output 08/16/18 08/17/18 08/17/18 18:59 06:59 18:59 Intake Total 590 / 590 Balance 590 / 590 Intake: IV 350 / 350 Azithromycin Inj 500 MG In NS 250 / 250 Inj 250 ML @ 250 mls/hr IV.SIG Q24H ANDREA Rx#:[id number] Rocephin Inj 1,000 MG In NS Inj 100 / 100 100 ML @ 200 mls/hr IV.SIG Q24H ANDREA Rx#:[id number] Oral 240 / 240 Other: # Voids 3 2 Date of Last Bowel Movement 08/16/18 08/16/18 08/16/18 # Bowel Movements 1 Narrative: GENERAL: NAD SKIN: Warm and dry. HEAD: Atraumatic. Normocephalic. EYES: Pupils equal and round. No scleral icterus. No injection or drainage. ENT: No nasal bleeding or discharge. Mucous membranes pink and moist. NECK: Trachea midline. No JVD. CARDIOVASCULAR: Regular rate and rhythm. RESPIRATORY: No accessory muscle use. Clear to auscultation. Breath sounds equal bilaterally GASTROINTESTINAL: Abdomen soft, non-tender, nondistended. Hepatic and splenic margins not palpable. MUSCULOSKELETAL: Extremities without clubbing, cyanosis, or edema. No obvious deformities. NEUROLOGICAL: Awake and alert. No obvious cranial nerve deficits. Motor grossly within normal limits. Five out of 5 muscle strength in the arms and legs. Normal speech. PSYCHIATRIC: Appropriate mood and affect; insight and judgment normal. Results - Labs CBC & Chem 7: 08/17/18 05:41 08/17/18 05:41 Laboratory Results - last 24 hr 08/17/18 08/17/18 08/17/18 05:41 05:41 12:32 WBC 12.1 H RBC 3.61 L Hgb 7.6 L Hct 24.6 L MCV 68.2 L MCH 21.1 L MCHC 31.0 L RDW 17.1 Plt Count 654 H MPV 7.3 Neut % (Auto) 77.5 H Lymph % (Auto) 11.4 [place] % (Auto) 8.9 H Eos % (Auto) 1.1 Baso % (Auto) 1.1 Neut # (Auto) 9.4 H Lymph # (Auto) 1.4 [place] # (Auto) 1.1 H Eos # (Auto) 0.1 Baso # (Auto) 0.1 WBC Differential . Differential Comment Auto diff final Sodium 140 Potassium 3.7 Chloride 106 Carbon Dioxide 26.2 Anion Gap 8 BUN 5 L Creatinine 0.63 Estimated GFR Greater than 89 Random Glucose 95 Calcium 8.7 Total Bilirubin 0.2 AST 63 H ALT 83 H Alkaline Phosphatase 58 Total Protein 7.1 Albumin 1.6 L Blood Type AB Positive Antibody Screen Negative MTS Gel Crossmatch See Detail Microbiology 08/14/18 17:26 Blood - Peripheral Aerobic Blood Culture - Preliminary No growth in 3 days 08/14/18 17:26 Blood - Peripheral Anaerobic Blood Culture - Preliminary No growth in 3 days 08/14/18 17:20 Blood - Peripheral Aerobic Blood Culture - Preliminary No growth in 3 days 08/14/18 17:20 Blood - Peripheral Anaerobic Blood Culture - Preliminary No growth in 3 days 08/15/18 00:25 Sputum - Expectorated Sputum Gram Stain - Final 08/15/18 00:25 Sputum - Expectorated Sputum Sputum Culture - Final Heavy growth normal respiratory doris 08/16/18 10:30 Stool Stool Occult Blood (ANAND) - Final Hemoccult negative Assessment and Plan - Assessment (1) Sepsis Code(s): A41.9 - Sepsis, unspecified organism Status: Acute (2) PNA (pneumonia) Code(s): J18.9 - Pneumonia, unspecified organism Status: Acute (3) Tobacco abuse Code(s): Z72.0 - Tobacco use Status: Acute (4) Anemia Code(s): D64.9 - Anemia, unspecified Status: Acute - Plan 62-year-old man with 1. Sepsis Source-PNA, s/p Blood Cultures, Currently on Rocephin/Zithro in ER, follow up cultures 2. Community-acquired bacteria PNA: X-ray w/ RLL pneumonia continue IV Abx as above, DuoNeb prn, monitor O2 3. Normochromic normocytic anemia Hemoccult pending, iron study noted without any evidence of BISHOP Will transfuse 1 unit packed red blood cell done 08/17/2018 4. Tobacco Abuse: Pt counselled, stopped smoking few ago at onset of SOB, NicoDerm patch if needed. 5. DVT Prophylaxis: SCD/Teds
[2018-08-17] MEDS: Acetaminophen 325 MG Tablet PO PRN (16:52)
[2018-08-17] MEDS: Azithromycin Inj 500 MG in Sodium Chlor 0.9% Inj 250 ML IV.SIG SCH (21:35)
[2018-08-18 05:38] LABS: Baso # (Auto) 0.1 th/mm3 (0.0-0.2); Eos # (Auto) 0.4 th/mm3 (0.0-0.4); Eos % (Auto) 3.2 % (0.0-4.0); Hematocrit 29.2 % (39.0-51.0); Hemoglobin 9.1 gm/dL (13.0-17.0); Lymph # (Auto) 1.3 th/mm3 (1.0-4.8); Lymph % (Auto) 9.4 % (9.0-44.0); Mean Corpuscular HGB Conc 31.3 % (32.0-36.0); Mean Corpuscular Hemoglobin 22.1 pg (27.0-34.0); Mean Corpuscular Volume 70.5 fL (80.0-100.0); Mean Platelet Volume 7.3 fL (7.0-11.0); Mono # (Auto) 0.8 th/mm3 (0.0-0.9); Mono % (Auto) 5.9 % (0.0-8.0); Neut # (Auto) 11.2 th/mm3 (1.8-7.7); Neut % (Auto) 80.5 % (16.0-70.0); Platelet Count 690 th/mm3 (150-450); Red Blood Count 4.14 mil/mm3 (4.50-5.90); White Blood Count 13.9 th/mm3 (4.0-11.0)
[2018-08-18 06:03] LABS: Alanine Aminotransferase 90 U/L (12-78); Albumin 1.7 g/dL (3.4-5.0); Anion Gap 7 meq/L (5-15); Aspartate Aminotransferase 51 U/L (15-37); Blood Urea Nitrogen 5 mg/dL (7-18); Calcium 8.3 mg/dL (8.5-10.1); Carbon Dioxide 27.2 meq/L (21.0-32.0); Chloride 104 meq/L (98-107); Glomerular Filtration Rate Greater Than 89 mL/min (>89); Glucose,Random 101 mg/dL (74-106); Potassium 3.5 meq/L (3.5-5.1); Sodium 138 meq/L (136-145)
[2018-08-18 06:05] LABS: Alkaline Phosphatase 65 U/L (45-117); Total Protein 7.7 g/dL (6.4-8.2)
[2018-08-18 08:38] VITALS: RESP 16
--- NOTE | 2018-08-18 10:11 | P.PN ---
Subjective Interval history: Follow-up sepsis/pneumonia August 15, 2018-patient seen and examined, still spiking fevers and complains of shortness of breath. August 16, 2018-patient seen and examined, currently afebrile times 24 hours. Reports improvement of shortness of breath and denies any chest pain. August 17, 2018-patient seen and examined, T-max 101.4 at 11 PM however currently afebrile. No chest pain or shortness of breath. Hemoglobin 7.6. Patient denies any GI bleed. August 18, 2018-patient seen and examined, T-max 99.7 at midnight, currently afebrile. No chest pain, dizziness or shortness of breath. H&H improved post 1 unit transfusion yesterday. Physical Exam Vital signs: Vital Signs 08/17/18 10:45 08/17/18 16:21 08/17/18 17:14 Temperature 99.1 F 99.1 F 100.7 F H Pulse Rate 91 H 91 H 92 H Respiratory Rate 16 16 17 Blood Pressure 111/73 111/73 129/68 Pulse Oximetry 97 97 96 08/17/18 20:00 08/18/18 00:09 08/18/18 04:36 Temperature 98.5 F 99.7 F H 98.7 F Pulse Rate 90 100 H 98 H Respiratory Rate 18 18 18 Blood Pressure 129/75 128/71 115/71 Pulse Oximetry 94 L 94 L 94 L 08/18/18 08:36 Temperature 97.8 F Pulse Rate 96 H Respiratory Rate 16 Blood Pressure 126/75 Pulse Oximetry 95 Intake & Output 08/17/18 08/18/18 08/18/18 18:59 06:59 18:59 Intake Total 640 / 640 800 / 800 Balance 640 / 640 800 / 800 Intake: IV 350 / 350 Azithromycin Inj 500 MG In NS 250 / 250 Inj 250 ML @ 250 mls/hr IV.SIG Q24H ANDREA Rx#:[id number] Rocephin Inj 1,000 MG In NS Inj 100 / 100 100 ML @ 200 mls/hr IV.SIG Q24H ANDREA Rx#:[id number] Oral 240 / 240 450 / 450 Intake (Blood Product) Amt 400 / 400 Rbc As-3 Leukoreduced Unit 400 / 400 [id number] Other: # Voids 2 3 Date of Last Bowel Movement 08/16/18 Narrative: GENERAL: NAD SKIN: Warm and dry. HEAD: Atraumatic. Normocephalic. EYES: Pupils equal and round. No scleral icterus. No injection or drainage. ENT: No nasal bleeding or discharge. Mucous membranes pink and moist. NECK: Trachea midline. No JVD. CARDIOVASCULAR: Regular rate and rhythm. RESPIRATORY: No accessory muscle use. Clear to auscultation. Breath sounds equal bilaterally GASTROINTESTINAL: Abdomen soft, non-tender, nondistended. Hepatic and splenic margins not palpable. MUSCULOSKELETAL: Extremities without clubbing, cyanosis, or edema. No obvious deformities. NEUROLOGICAL: Awake and alert. No obvious cranial nerve deficits. Motor grossly within normal limits. Five out of 5 muscle strength in the arms and legs. Normal speech. PSYCHIATRIC: Appropriate mood and affect; insight and judgment normal. Results - Labs CBC & Chem 7: 08/18/18 04:17 08/18/18 04:17 Laboratory Results - last 24 hr 08/17/18 08/18/18 08/18/18 12:32 04:17 04:17 WBC 13.9 H RBC 4.14 L Hgb 9.1 L Hct 29.2 L MCV 70.5 L MCH 22.1 L MCHC 31.3 L RDW 19.0 H Plt Count 690 H MPV 7.3 Neut % (Auto) 80.5 H Lymph % (Auto) 9.4 [place] % (Auto) 5.9 Eos % (Auto) 3.2 Baso % (Auto) 1.0 Neut # (Auto) 11.2 H Lymph # (Auto) 1.3 [place] # (Auto) 0.8 Eos # (Auto) 0.4 Baso # (Auto) 0.1 WBC Differential . Differential Comment Auto diff final Sodium 138 Potassium 3.5 Chloride 104 Carbon Dioxide 27.2 Anion Gap 7 BUN 5 L Creatinine 0.69 Estimated GFR Greater than 89 Random Glucose 101 Calcium 8.3 L Total Bilirubin 0.4 AST 51 H ALT 90 H Alkaline Phosphatase 65 Total Protein 7.7 D Albumin 1.7 L Blood Type AB Positive Antibody Screen Negative MTS Gel Crossmatch See Detail Microbiology 08/14/18 17:26 Blood - Peripheral Aerobic Blood Culture - Preliminary No growth in 3 days 08/14/18 17:26 Blood - Peripheral Anaerobic Blood Culture - Preliminary No growth in 3 days 08/14/18 17:20 Blood - Peripheral Aerobic Blood Culture - Preliminary No growth in 3 days 08/14/18 17:20 Blood - Peripheral Anaerobic Blood Culture - Preliminary No growth in 3 days 08/15/18 00:25 Sputum - Expectorated Sputum Gram Stain - Final 08/15/18 00:25 Sputum - Expectorated Sputum Sputum Culture - Final Heavy growth normal respiratory doris - Procedures none Assessment and Plan - Assessment (1) Sepsis Code(s): A41.9 - Sepsis, unspecified organism Status: Acute (2) PNA (pneumonia) Code(s): J18.9 - Pneumonia, unspecified organism Status: Acute (3) Tobacco abuse Code(s): Z72.0 - Tobacco use Status: Acute (4) Anemia Code(s): D64.9 - Anemia, unspecified Status: Acute - Plan 62-year-old man with 1. Sepsis-resolved Source-PNA, s/p Blood Cultures, Currently on Rocephin/Zithro in ER, blood culture negative to date 2. Community-acquired bacteria PNA: X-ray w/ RLL pneumonia continue IV Abx as above, DuoNeb prn, monitor O2 3. Normochromic normocytic anemia Hemoccult negative, iron study noted without any evidence of BISHOP H&H stable post 1 unit packed red blood cell 08/17/2018 4. Tobacco Abuse: Pt counselled, stopped smoking few ago at onset of SOB, NicoDerm patch if needed. 5. DVT Prophylaxis: SCD/Teds
--- NOTE | 2018-08-18 10:18 | P.DS ---
Date of admission: 08/14/18 19:00 Primary care physician: No Primary Care Physician Brief History from admission: This is a 62-year-old male with a PMH of HTN and Tobacco Abuse who presented to the ER with complaints of SOB in addition to outpatient X-ray showing RLL pneumonia. Pt states symptoms started approx 3wks ago, has not been on antibiotics. Reports SOB w/ exertion, non-productive cough. No fever or chills. Went to Urgent Care today and had X-ray showing PNA, was given antibiotics, however did not start them yet, came to ER instead. On arrival, BP 113/66, HR 110, O2 sat 96% on RA, Temp 99.8. WBC 15.4. Hemoglobin 8.7, no previous labs for comparison. Chemistry unremarkable. CXR with right lower lobe pneumonia. S/p Rocephin/Zithro in ER. DS: Diagnosis - Discharge Diagnosis (1) Sepsis Status: Acute (2) PNA (pneumonia) Status: Acute (3) Tobacco abuse Status: Acute (4) Anemia Status: Acute DS: Summary Hospital Course: Patient admitted for sepsis secondary to pneumonia for which he was started on IV antibiotics including Rocephin and azithromycin with monitor culture. During his hospitalization, vitals were monitored and all electrolyte abnormalities were corrected accordingly. Patient was transfused 1 unit packed red blood cells with improvement of H&H. Antibiotics will be escalated prior to discharge. DVT and GI prophylaxis were provided. Prior to discharge, patient's conditions improved. He will be discharged home on p.o. antibiotic. - Time Spent with Patient Total time spent providing and/or coordinating discharge services: Less than 30 minutes - Quality: VTE Deep Vein Thrombosis/Pulmonary Embolism Present on Admission: No Exam Vital signs: Vital Signs 08/17/18 10:45 08/17/18 16:21 08/17/18 17:14 Temperature 99.1 F 99.1 F 100.7 F H Pulse Rate 91 H 91 H 92 H Respiratory Rate 16 16 17 Blood Pressure 111/73 111/73 129/68 Pulse Oximetry 97 97 96 08/17/18 20:00 08/18/18 00:09 08/18/18 04:36 Temperature 98.5 F 99.7 F H 98.7 F Pulse Rate 90 100 H 98 H Respiratory Rate 18 18 18 Blood Pressure 129/75 128/71 115/71 Pulse Oximetry 94 L 94 L 94 L 08/18/18 08:36 Temperature 97.8 F Pulse Rate 96 H Respiratory Rate 16 Blood Pressure 126/75 Pulse Oximetry 95 Intake & Output 08/17/18 08/18/18 08/18/18 18:59 06:59 18:59 Intake Total 640 / 640 800 / 800 Balance 640 / 640 800 / 800 Intake: IV 350 / 350 Azithromycin Inj 500 MG In NS 250 / 250 Inj 250 ML @ 250 mls/hr IV.SIG Q24H ANDREA Rx#:[id number] Rocephin Inj 1,000 MG In NS Inj 100 / 100 100 ML @ 200 mls/hr IV.SIG Q24H ANDREA Rx#:[id number] Oral 240 / 240 450 / 450 Intake (Blood Product) Amt 400 / 400 Rbc As-3 Leukoreduced Unit 400 / 400 [id number] Other: # Voids 2 3 Date of Last Bowel Movement 08/16/18 Narrative: GENERAL: NAD SKIN: Warm and dry. HEAD: Atraumatic. Normocephalic. EYES: Pupils equal and round. No scleral icterus. No injection or drainage. ENT: No nasal bleeding or discharge. Mucous membranes pink and moist. NECK: Trachea midline. No JVD. CARDIOVASCULAR: Regular rate and rhythm. RESPIRATORY: No accessory muscle use. Clear to auscultation. Breath sounds equal bilaterally GASTROINTESTINAL: Abdomen soft, non-tender, nondistended. Hepatic and splenic margins not palpable. MUSCULOSKELETAL: Extremities without clubbing, cyanosis, or edema. No obvious deformities. NEUROLOGICAL: Awake and alert. No obvious cranial nerve deficits. Motor grossly within normal limits. Five out of 5 muscle strength in the arms and legs. Normal speech. PSYCHIATRIC: Appropriate mood and affect; insight and judgment normal. Results Procedures completed during hospitalization: none Labs on day of discharge: Labs from last 24 hours 08/18/18 08/18/18 08/17/18 04:17 04:17 12:32 WBC 13.9 H RBC 4.14 L Hgb 9.1 L Hct 29.2 L MCV 70.5 L MCH 22.1 L MCHC 31.3 L RDW 19.0 H Plt Count 690 H MPV 7.3 Neut % (Auto) 80.5 H Lymph % (Auto) 9.4 [place] % (Auto) 5.9 Eos % (Auto) 3.2 Baso % (Auto) 1.0 Neut # (Auto) 11.2 H Lymph # (Auto) 1.3 [place] # (Auto) 0.8 Eos # (Auto) 0.4 Baso # (Auto) 0.1 WBC Differential . Differential Comment Auto diff final Sodium 138 Potassium 3.5 Chloride 104 Carbon Dioxide 27.2 Anion Gap 7 BUN 5 L Creatinine 0.69 Estimated GFR Greater than 89 Random Glucose 101 Calcium 8.3 L Total Bilirubin 0.4 AST 51 H ALT 90 H Alkaline Phosphatase 65 Total Protein 7.7 D Albumin 1.7 L Blood Type AB Positive Antibody Screen Negative MTS Gel Crossmatch See Detail Preliminary micro results at discharge 08/14/18 17:26 Aerobic Blood Culture - Preliminary Blood - Peripheral No growth in 3 days Anaerobic Blood Culture - Preliminary No growth in 3 days 08/14/18 17:20 Aerobic Blood Culture - Preliminary Blood - Peripheral No growth in 3 days Anaerobic Blood Culture - Preliminary No growth in 3 days - Impressions ITS Impressions Chest X-Ray 08/14/18 17:10 CONCLUSION: Right lower lobe pneumonia. Discharge Plan - Discharge Disposition Patient Disposition: Discharge Home - Discharge Condition Condition: Good - Physicians Team Primary Care Provider: Primary Care Tiesha Sanchez Attending Provider: Suleiman Zaragoza
[2018-08-18] MEDS ORDERED: guaiFENesin 600 MG ER Tablet PO SCH (11:15)
[2018-08-18 12:30] VITALS: BP 117/69; PULSE 88; TEMP 98.2; O2SAT 98
== END 2018-08-18 14:45 | disposition home or self-care (01) | DRG 871 ==
LOC: NEPC 16:50 → NEDA 16:50 → NEPHCDU 22:03 → N03 08-15 21:47
PROVIDERS: ADMIT Hospitalist; ATTEND Hospitalist
DX: A41.9 Sepsis, unspecified organism; I10 Essential (primary) hypertension; J18.1 Lobar pneumonia, unspecified organism; Z87.891 Personal history of nicotine dependence; D64.9 Anemia, unspecified
CPT/HCPCS: 36430; 71010; 71045; 80053; 82272; 82728; 83540; 83550; 83605; 84484; 85025; 86850; 86900; 86901; 86923; 87040; 87070; 87205; 87275; 87276; 87804; 90765; 93005; 94640; 94665; 96365; 97161; 99285; J0456; J0696; J7030; J7050; P9016